=== PATIENT | male | born 1995 | race Caucasian/White ===

== ENCOUNTER 2017-10-30 01:23 | Emergency (ER) | payer MEDICAID ==
[2017-10-30 01:39] VITALS: O2SAT 98
--- NOTE | 2017-10-30 02:53 | C.PDOC ---
History Of Present Illness 22 year old male with PMHx of pericarditis presents to the ED c/o dental pain. Patient states he chipped his tooth on the left side long ago but yesterday pain worsened. Patient reports today he noticed some swelling to the left side of his face. Patient denies injury, fall, trauma, headache, fever, chills. Time Seen by Provider: 10/30/17 01:40 Chief Complaint (Nursing): Dental Pain History Per: Patient History/Exam Limitations: no limitations Onset/Duration Of Symptoms: Days Current Symptoms Are (Timing): Still Present Quality: Positive for: "Pain" Recent travel outside of the [place]: No Additional History Per: Patient Past Medical History Reviewed: Historical Data, Nursing Documentation, Vital Signs Vital Signs: Last Vital Signs Temp 98.4 F 10/30/17 04:12 Pulse 60 10/30/17 04:12 Resp 16 10/30/17 04:12 BP 130/79 10/30/17 04:12 Pulse Ox 98 10/30/17 04:12 - Medical History PMH: Pericarditis Surgical History: Coronary Stent - [facility] Procedures MEASURE OF CARDIAC SAMPL & PRESSURE, L HEART, PERC APPROACH (05/08/15) PLAIN RADIOGRAPHY OF LEFT HEART USING LOW OSMOLAR CONTRAST (05/08/15) Family History: States: Unknown Family Hx - Social History Hx Alcohol Use: Yes Hx Substance Use: No - Immunization History Hx Tetanus Toxoid Vaccination: No Hx Influenza Vaccination: No Hx Pneumococcal Vaccination: No Review Of Systems Constitutional: Negative for: Fever, Chills ENT: Positive for: Mouth Pain, Mouth Swelling Cardiovascular: Negative for: Chest Pain Respiratory: Negative for: Cough, Shortness of Breath Gastrointestinal: Negative for: Nausea, Vomiting Neurological: Negative for: Weakness, Numbness Physical Exam - Physical Exam Appears: Non-toxic, No Acute Distress Skin: Normal Color, Warm, Dry, No Rash Head: Atraumatic, Normacephalic Eye(s): bilateral: Normal Inspection, PERRL, EOMI Ear(s): Bilateral: Normal Oral Mucosa: Moist Teeth: Tender To Palpation (left lower 2nd molar), Other (chipped left lower 2nd molar. no abscess. no trismus) Gingiva: No Swelling, Tender, No Bleeding Throat: Normal, No Erythema, No Exudate Neck: Normal ROM, Supple Chest: Symmetrical, No Tenderness Cardiovascular: Rhythm Regular, No Friction Rub, No Murmur Respiratory: No Accessory Muscle Use, No Stridor, No Wheezing Extremity: Normal ROM, No Tenderness, No Swelling Neurological/Psych: Oriented x3, Normal Speech, Normal Motor Gait: Steady ED Course And Treatment O2 Sat by Pulse Oximetry: 98 (ON RA) Pulse Ox Interpretation: Normal Disposition - Disposition Referrals: Mikhail Canada MD [Staff Provider] - Disposition: HOME/ ROUTINE Disposition Time: 03:46 Condition: GOOD Additional Instructions: Follow up with the dentist tomorrow without fail. 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 - Scribe Statement The provider has reviewed the documentation as recorded by the Scribe Jair Padron All medical record entries made by the [place] were at my direction and personally dictated by me. I have reviewed the chart and agree that the record accurately reflects my personal performance of the history, physical exam, medical decision making, and the department course for this patient. I have also personally directed, reviewed, and agree with the discharge instructions and disposition.
[2017-10-30] MEDS ORDERED: Oxycodone/Acetaminophen 5/325 mg Tab PO STA (03:05)
[2017-10-30] MEDS ORDERED: Oxycodone/Acetaminophen 5/325 mg Tab ONE (03:27)
[2017-10-30 04:13] VITALS: BP 130/79; PULSE 60; RESP 16; TEMP 98.4
== END 2017-10-30 04:13 | disposition home or self-care (01) ==
LOC: C.ER 01:23
DX: K02.9 Dental caries, unspecified (principal); K08.89 Other specified disorders of teeth and supporting structures

== ENCOUNTER 2018-09-17 00:43 | Emergency (ER) | payer SELFPAY ==
[2018-09-17 00:53] VITALS: BP 134/88; PULSE 75; RESP 20
[2018-09-17] MEDS ORDERED: Amoxicillin-Clav 875-125 mg Tab PO STA (01:16)
--- NOTE | 2018-09-17 01:26 | C.PDOC ---
History Of Present Illness 23 year old male with URI symptoms over the past few days presents with pain and pressure to the right ear and nasal congestion since yesterday. Patient states he feels pain with swallowing and decreased hearing. Denies trauma or headache. Time Seen by Provider: 09/17/18 01:02 History Per: Patient History/Exam Limitations: None Onset/Duration Of Symptoms: Days Current Symptoms Are (Timing): Still Present Past Medical History Reviewed: Historical Data, Nursing Documentation, Vital Signs Vital Signs: Last Vital Signs Temp 98.7 F 09/17/18 00:51 Pulse 75 09/17/18 00:51 Resp 20 09/17/18 00:51 BP 134/88 09/17/18 00:51 Pulse Ox 97 09/17/18 00:51 - Medical History PMH: Pericarditis Surgical History: Coronary Stent - [facility] Procedures MEASURE OF CARDIAC SAMPL & PRESSURE, L HEART, PERC APPROACH (05/08/15) PLAIN RADIOGRAPHY OF LEFT HEART USING LOW OSMOLAR CONTRAST (05/08/15) Family History: States: Unknown Family Hx - Social History Hx Alcohol Use: Yes Hx Substance Use: No - Immunization History Hx Tetanus Toxoid Vaccination: No Hx Influenza Vaccination: No Hx Pneumococcal Vaccination: No Review Of Systems Constitutional: Negative for: Fever, Chills ENT: Positive for: Ear Pain, Nose Congestion Respiratory: Negative for: Cough Skin: Negative for: Rash Neurological: Negative for: Headache Physical Exam - Physical Exam Appears: Non-toxic Skin: Normal Color, Warm Head: Atraumatic, Normacephalic Eye(s): bilateral: Normal Inspection Ear(s): Left: Normal, Right: TM Erythema (w/ bulging and erythema of the canal) Nose: Other (Enlarged nasal turbinates) Oral Mucosa: Moist Throat: Normal, No Erythema, No Exudate Neck: Normal, No Midline Cervical Tenderness, No Paracervical Tenderness, Supple Neurological/Psych: Oriented x3, Normal Speech ED Course And Treatment O2 Sat by Pulse Oximetry: 97 (Room air) Pulse Ox Interpretation: Normal Progress Note: Benadryl and motrin administered. Patient is resting comfortably in no acute distress, vitals are stable, first dose of augmentin given here, patient discharged with instructions to follow up with PMD. Disposition Counseled Patient/Family Regarding: Diagnosis, Need For Followup, Rx Given - Disposition Referrals: [facility] [Outside] Ziggy Bray MD [Staff Provider] - Disposition: HOME/ ROUTINE Disposition Time: 01:23 Condition: STABLE Additional Instructions: Take all medications as directed Follow up with PMD Return to ER if worse Prescriptions: Amoxicillin/Clavulanate [Augmentin 875 MG-125 MG] 1 tab PO BID #14 tab Cetirizine HCl [Zyrtec] 10 mg PO DAILY #14 capsule Ibuprofen [Motrin Tab] 800 mg PO QID #20 tab Mometasone Furoate [Nasonex] 2 spray NS DAILY #1 bottle Instructions: Ear Infections (Otitis Media) (DC) Forms: Work Excuse - Clinical Impression Clinical Impression: Otitis media - PA / MANAGER RESOURCE / Resident Statement MD/DO has reviewed & agrees with the documentation as recorded. - Scribe Statement The provider has reviewed the documentation as recorded by the Scribe Jeferson Monterroso All medical record entries made by the Scribe were at my direction and personally dictated by me. I have reviewed the chart and agree that the record accurately reflects my personal performance of the history, physical exam, medical decision making, and the department course for this patient. I have also personally directed, reviewed, and agree with the discharge instructions and disposition.
[2018-09-17] MEDS ORDERED: Amoxicillin-Clav 875-125 mg Tab PO ONE (01:29)
[2018-09-17 02:04] VITALS: TEMP 98.4
[2018-09-17 04:13] VITALS: O2SAT 97
== END 2018-09-17 01:48 | disposition home or self-care (01) ==
LOC: C.ER 00:43
DX: H66.91 Otitis media, unspecified, right ear (principal)